=== PATIENT | female | born 1980 | race Caucasian/White ===

== ENCOUNTER → 2016-08-23 | Outpatient (CLI) | payer BC ==
[2016-08-23 12:39] LABS: CHLORIDE,CL 108 mmol/L (98-110); SODIUM,NA 139 mmol/L (136-146)
== END ==
LOC: MW.LAB 11:27
PROVIDERS: ATTEND Obstetrics & Gynecology
DX: G64 Other disorders of peripheral nervous system (principal); E11.9 Type 2 diabetes mellitus without complications
CPT/HCPCS: 36415; 80053; 80061; 82306; 82607; 82746; 84443

== ENCOUNTER 2020-10-20 09:56 | Emergency (ER) | payer BC ==
--- NOTE | 2020-10-20 11:09 | EDM.PDOC ---
ED HPI GENERAL MEDICAL PROBLEM - General Chief Complaint: Lower Extremity Injury/Pain Stated Complaint: R ANKLE INJURED Time Seen by Provider: 10/20/20 10:06 Source of Information: Reports: Patient History Limitations: Reports: No Limitations - History of Present Illness INITIAL COMMENTS - FREE TEXT/NARRATIVE: HISTORY AND PHYSICAL: History of present illness: Patient is a 39-year-old female who presents to the ED today with concern of right ankle injury that occurred just prior to travel to the ED. Patient states that she was the gym and was on a pliable box and had jumped off. Patient states that when she jumped off and landed on the floor, she twisted her right ankle inward and felt a popping sensation. Patient states that she did not completely fall and was able to catch herself but has not been able to put weight on the ankle since the injury. Patient states she has intact sensation of the complete extremity and denies any other symptoms or concerns. Patient denies fever, chills, chest pain, shortness of breath, or cough. Denies headache, neck stiff ness, change in vision, syncope, or near syncope. Denies nausea, vomiting, abdominal pain, diarrhea, constipation, or dysuria. Has not noted any blood in urine or stool. Patient has been eating and drinking appropriately. Review of systems: As per history of present illness and below otherwise all systems reviewed and negative. Past medical history: As per history of present illness and as reviewed below otherwise noncontributory. Surgical history: As per history of present illness and as reviewed below otherwise noncontributory. Social history: See social history for further information Family history: As per history of present illness and as reviewed below otherwise noncontributory. Physical exam: General: Patient is alert, oriented, and in no acute distress. Patient sitting comfortably on exam table. Vitals stable and reviewed by me. HEENT: Atraumatic, normocephalic, pupils equal and reactive bilaterally, negative for conjunctival pallor or scleral icterus, mucous membranes moist, TMs normal bilaterally, throat clear, neck supple, nontender, trachea midline. No drooling or trismus noted. No meningeal signs. No hot potato voice noted. Lungs: Clear to auscultation, breath sounds equal bilaterally, chest nontender. Heart: S1S2, regular rate and rhythm without overt murmur Abdomen: Soft, nondistended, nontender. Negative for masses or hepatosplenomegaly. Negative for costovertebral tenderness. Pelvis: Stable nontender. Genitourinary: Deferred. Rectal: Deferred. Skin: Intact, warm, dry. No lesions or rashes noted. Extremities: Patient has moderate edema of the right lower extremity lateral malleolus with pain to palpation of this area. Limited range of motion of the right ankle due to pain. Dorsalis pedis and posterior tibial pulses are grossly intact of the right lower extremity with capillary refill less than 2 seconds. Patient does have full range of motion of the right knee and digits of the right lower extremity. All compartments are soft of the right lower extremity. Intact sensation to light and deep touch of the complete light right lower extremity. Otherwise, atraumatic, negative for cords or calf pain. Neurovascular unremarkable. Neuro: Awake, alert, oriented. Cranial nerves II through XII unremarkable. Cerebellum unremarkable. Motor and sensory unremarkable throughout. Exam nonfocal. Notes: Signs and symptoms are prompt return to the ED thoroughly discussed with patient. Discussed importance for follow-up with an orthopedic provider. Voices understanding and is agreeable to plan of care. Denies any further questions or concerns at this time. Diagnostics: Foot and ankle x-ray, right Therapeutics: Crutches, Aircast splint placed by nursing staff Prescription: None Impression: Right ankle injury Plan: 1. Rest, ice, elevate the affected extremity. You can apply ice 15 minutes on, 15 minutes off. 2. Tylenol and/or Ibuprofen as directed for pain management or discomfort. 3. Follow up with the primary care provider as discussed. Return to the ED as needed and as discussed. Definitive disposition and diagnosis as appropriate pending reevaluation and review of above. right ankle Pain Score (Numeric/FACES): 7 - Related Data Allergies Allergy/AdvReac Type Severity Reaction Status Date / Time No Known Allergies Allergy Verified 10/20/20 10:54 Home Meds: Home Meds Citalopram Hydrobromide [Celexa] 1 tab PO DAILY 12/24/14 [History] Estradiol Cypionate [Depo-Estradiol] 0 IM ASDIRECTED 12/24/14 [History] Thyroid [Pierron Thyroid] 1 tab PO BID 12/24/14 [History] Past Medical History Gastrointestinal History: Reports: Irritable Bowel Syndrome [employer] History: Reports: Other (See Below) Other [employer] History: hysterectomy Endocrine/Metabolic History: Reports: Diabetes, Type II - Infectious Disease History Infectious Disease History: Reports: Chicken Pox Review of Systems - Review of Systems Review Of Systems: Comprehensive ROS is negative, except as noted in HPI. ED EXAM, GENERAL - Physical Exam Exam: See Below (see dictation) Course - Vital Signs Last Recorded V/S: Last Vital Signs Temp 97.0 F 10/20/20 10:59 Pulse 94 10/20/20 10:59 Resp 18 10/20/20 10:59 BP 142/62 H 10/20/20 10:59 Pulse Ox 97 10/20/20 10:59 - Orders/Labs/Meds Orders: Active Orders 24 hr Category Date Time Status DME for Discharge [COMM] Stat Oth 10/20/20 12:14 Ordered Meds: Medications Discontinued Medications Generic Name Dose Route Start Last Admin Trade Name Freq PRN Reason Stop Dose Admin Ketorolac Tromethamine 60 mg 10/20/20 11:44 10/20/20 11:56 Ketorolac 60 Mg/2 Ml Sdv IM 10/20/20 11:45 60 mg ONETIME ONE Administration Oxycodone/Acetaminophen 1 tab 10/20/20 11:44 10/20/20 11:57 Acetaminophen/Oxycodone 325-5 Mg Tab PO 10/20/20 11:45 1 tab ONETIME ONE Administration Departure - Departure Time of Disposition: 12:15 Disposition: Home, Self-Care 01 Clinical Impression: Right ankle injury Qualifiers: Encounter type: initial encounter Qualified Code(s): S99.911A - Unspecified injury of right ankle, initial encounter - Discharge Information Referrals: Nettie Miles MD [Primary Care Provider] - Forms: ED Department Discharge Additional Instructions: The following information is given to patients seen in the emergency department who are being discharged to home. This information is to outline your options for follow-up care. We provide all patients seen in our emergency department with a follow-up referral. The need for follow-up, as well as the timing and circumstances, are variable depending upon the specifics of your emergency department visit. If you don't have a primary care physician on staff, we will provide you with a referral. We always advise you to contact your personal physician following an emergency department visit to inform them of the circumstance of the visit and for follow-up with them and/or the need for any referrals to a consulting specialist. The emergency department will also refer you to a specialist when appropriate. This referral assures that you have the opportunity for follow-up care with a specialist. All of these measure are taken in an effort to provide you with optimal care, which includes your follow-up. Under all circumstances we always encourage you to contact your private physician who remains a resource for coordinating your care. When calling for follow-up care, please make the office aware that this follow-up is from your recent emergency room visit. If for any reason you are refused follow-up, please contact the [facility] Emergency Department at and asked to speak to the emergency department charge nurse. [facility] [address] [place] [id number] [place] [address] 1. Rest, ice, elevate the affected extremity. You can apply ice 15 minutes on, 15 minutes off. 2. Tylenol and/or Ibuprofen as directed for pain management or discomfort. 3. Follow up with the primary care provider as discussed. Return to the ED as needed and as discussed. Sepsis Event Note (ED) - Evaluation Sepsis Screening Result: No Definite Risk - Focused Exam Vital Signs: Vital Signs Temp Pulse Resp BP Pulse Ox 10/20/20 10:59 97.0 F 94 18 142/62 H 97 - My Orders Last 24 Hours: My Active Orders 10/20/20 12:14 DME for Discharge [COMM] Stat - Assessment/Plan Last 24 Hours: My Active Orders 10/20/20 12:14 DME for Discharge [COMM] Stat
[2020-10-20] MEDS ORDERED: Ketorolac 60 MG/2 ML SDV IM ONE (11:44)
[2020-10-20] MEDS ORDERED: Acetaminophen/oxyCODONE 325-5 MG Tab PO ONE (11:44)
--- NOTE | 2020-10-20 12:03 | CR ---
Indication: Twisting injury. Technique: Three views of the right ankle. Comparison: None Findings/Impression: No acute fracture or dislocation. Ankle mortise is symmetric, ankle syndesmosis is normal.Significant soft tissue swelling adjacent to the lateral malleolus. Dictated by Teena Pabon MD @ 10/20/2020 12:03:[address] Teena Pabon @ Oct 20 2020 12:03PM
--- NOTE | 2020-10-20 12:10 | CR ---
Indication: Pain Technique: Right foot 2 views Comparison: None Findings: Bones: Alignment is normal. No fractures or bone lesions. Joint spaces: Unremarkable. Soft tissues: Unremarkable. Dictated by Romulo Stephen MD @ 10/20/2020 12:08:[address] Romulo Stephen @ Oct 20 2020 12:08PM
[2020-10-20 12:51] VITALS: BP 122/65; PULSE 89
== END 2020-10-20 12:34 | disposition home or self-care (01) ==
LOC: MW.ED 09:56
DX: S99.911A Unspecified injury of right ankle, initial encounter (principal); E11.9 Type 2 diabetes mellitus without complications; W17.89XA Other fall from one level to another, initial encounter; Y93.43 Activity, gymnastics
CPT/HCPCS: 73610; 73620; 96372; 99283; A9270; J1885

== ENCOUNTER 2024-05-06 19:41 | Emergency (ER) | payer BC ==
[2024-05-06] MEDS: Sodium Chloride 0.9% 1,000 ML IV ONE (20:17)
[2024-05-06] MEDS: Ketorolac 30 MG/ML SDV IVPUSH ONE (20:18)
[2024-05-06] MEDS: LORazepam 2 MG/ML SDV IVPUSH ONE (20:18)
[2024-05-06] MEDS: Ondansetron 4 MG/2 ML SDV IVPUSH ONE (20:18)
[2024-05-06 21:40] VITALS: BP 112/53; PULSE 85
[2024-05-06] MEDS: Promethazine 25 MG/ML SDV IM ONE (21:47)
== END 2024-05-06 22:06 | disposition home or self-care (01) ==
LOC: MW.ED 19:41
DX: G43.909 Migraine, unspecified, not intractable, without status migrainosus (principal); E11.9 Type 2 diabetes mellitus without complications; Z79.899 Other long term (current) drug therapy; Z75.8 Other problems related to medical facilities and other health care
CPT/HCPCS: 70450; 70450-26; 96361; 96372; 96374; 96375; 99283; 99284-25; J1100; J1885; J2060; J2405; J2550; J7030